=== PATIENT | female | born 1980 | race Asian ===

== ENCOUNTER 2022-09-09 08:13 | Emergency (ER) | payer OTHER ==
[~2022-09-09] VITALS: Ht 152.4 cm; Wt 57.2 kg
[2022-09-09 09:44] VITALS: BP 112/73; TEMP 98
== END 2022-09-09 09:44 | disposition home or self-care (01) ==
LOC: ED 08:13
DX: N39.0 Urinary tract infection, site not specified (principal)
CPT/HCPCS: 81000; 81025; 87088; 87490; 87590; 96372; 99283; J1885